=== PATIENT | male | born 1940 | race Caucasian/White ===

== ENCOUNTER 2020-03-18 14:33 | Outpatient (REF) | payer MEDICARE, SELFPAY ==
[2020-03-22 14:43] LABS: OBS Int Ctl Valid YES; OBS1 POS (NEG); OBS2 POS (NEG); OBS3 POS (NEG)
== END 2020-03-18 14:34 | disposition home or self-care (01) ==
LOC: HO.LNP 14:33
PROVIDERS: Visit Provider Internal Medicine Medical Oncology
DX: D64.9 Anemia, unspecified (principal)
CPT/HCPCS: 82270

== ENCOUNTER 2020-06-18 10:13 | Day surgery (SDC) | payer MEDICARE, SELFPAY ==
--- NOTE | 2020-06-13 09:23 | P.CONAN_ITS ---
Documented by User: Margy Mensah 06/17/20 10:11 HPI - Anesthesia Eval Consult details Narrative: 80yo M for Bone Marrow Biopsy cx'd 06/10/20 d/t patient ate breakfast cx'd 06/14/20 d/t pt not stopping coumadin PMFSH Past Medical History Medical History Anemia Arthritis Atrial fibrillation CHF (congestive heart failure) Chronic renal failure COPD (chronic obstructive pulmonary disease) HTN (hypertension) Hyperlipemia Mitral regurgitation Pulmonary hypertension Urinary (tract) obstruction Family History Family History Father No problems noted. Mother No problems noted. Surgical History Surgical History History of heart bypass surgery (~2006) History of lumbar surgery History of prostate surgery Social History Social History Alcohol intake: current Alcohol intake frequency: 0-2 drinks per day Alcohol type: wine Smoking Status: Current some day smoker Tobacco Type: Cigarette Cigarettes Per Day: 5 Years Smoked: 65 Advance Directives: No Advance Directives Information Provided: Yes Meds Allergies Allergy/AdvReac Type Severity Reaction Status Date / Time No Known Allergies Allergy Verified 04/22/20 11:47 Home Medications Medication Instructions Recorded Confirmed Type acetaminophen [Tylenol] 325 mg PO QID PRN 03/08/20 04/22/20 History aspirin [Aspir-81] 81 mg PO DAILY 03/08/20 04/22/20 History tramadol 50 mg PO Q6H PRN 03/08/20 04/22/20 History triamcinolone acetonide [Kenalog] 1 applic TOPICAL BID 03/08/20 04/22/20 History hydralazine [Apresoline] 25 mg PO DAILY 06/13/20 06/13/20 History warfarin 5 tab PO DAILY 06/13/20 06/13/20 History ipratropium 20 mcg-albuterol 100 1 puff INHALATION Q4H 06/18/20 History mcg/actuation mist for inhalation Exam Exam Date and Time: June 13, [id number] Pertinent Lab Results Pertinent Lab Results: Laboratory Tests 06/07/20 06/07/20 11:18 11:18 WBC 7.3 Hgb 9.2 L Hct 29.4 L Plt Count 157 L Sodium 140 Potassium 4.0 Chloride 106 Carbon Dioxide 26 BUN 40 H Creatinine 2.07 H Assessment and Plan Assessment Anesthesia Assessment: Chart Reviewed Documented by User: Fany Guerra 06/18/20 12:03 [facility] Past Medical History Medical History Anemia Arthritis Atrial fibrillation CHF (congestive heart failure) Chronic renal failure COPD (chronic obstructive pulmonary disease) HTN (hypertension) Hyperlipemia Mitral regurgitation Pulmonary hypertension Urinary (tract) obstruction Family History Family History Father No problems noted. Mother No problems noted. Surgical History Surgical History History of heart bypass surgery (~2006) History of lumbar surgery History of prostate surgery Social History Social History Alcohol intake: current Alcohol intake frequency: 0-2 drinks per day Alcohol type: wine Smoking Status: Current some day smoker Tobacco Type: Cigarette Cigarettes Per Day: 5 Years Smoked: 65 Advance Directives: No Advance Directives Information Provided: Yes Meds Allergies Allergy/AdvReac Type Severity Reaction Status Date / Time No Known Allergies Allergy Verified 04/22/20 11:47 Home Medications Medication Instructions Recorded Confirmed Type acetaminophen [Tylenol] 325 mg PO QID PRN 03/08/20 04/22/20 History aspirin [Aspir-81] 81 mg PO DAILY 03/08/20 04/22/20 History tramadol 50 mg PO Q6H PRN 03/08/20 04/22/20 History triamcinolone acetonide [Kenalog] 1 applic TOPICAL BID 03/08/20 04/22/20 History hydralazine [Apresoline] 25 mg PO DAILY 06/13/20 06/13/20 History warfarin 5 tab PO DAILY 06/13/20 06/13/20 History ipratropium 20 mcg-albuterol 100 1 puff INHALATION Q4H 06/18/20 History mcg/actuation mist for inhalation Exam Airway Mallampati Class: II TM Dist: >3cm Neck ROM: Full Assessment and Plan Assessment Anesthesia Assessment: Anesthesia Plan Discussed and Chart Reviewed Final Anesthetic Review NPO: Yes ASA Class: III Final Preanesthetic Review: No Changes in Pt Med Stat, Meds/Allgs Chart Reviewed, Consent Obtained/Reviewed and Anes Risks/Benef Reviewed Patient Risk: Intermediate Procedure Risk: Low Assessment/Block/Sedation in SS: Assess/Block/Sedation-SS Anesthetic Plan Anesthetic Plan: MAC: Disposition: Standard PACU
[2020-06-17 06:52] VITALS: BMI 30.8
[2020-06-18 10:52] VITALS: BP 176/67; PULSE 62; RESP 22; TEMP 37.1; O2SAT 92
[2020-06-18 11:09] LABS: INTERNATIONAL NORM RATIO 1.5 (0.9-1.1); Prothrombin Time 17.7 SEC (10.8-13.0)
[2020-06-18 12:28] LABS: Bone Marrow SEE SEPARATE REPORT
[2020-06-18 12:30] VITALS: BP 115/50; PULSE 53; RESP 18; TEMP 36.5; O2SAT 98
[2020-06-18 12:45] VITALS: BP 144/51; PULSE 50; RESP 17; TEMP 36.4
--- NOTE | 2020-06-18 14:56 | PM.HEMONCBM ---
Bone Marrow Aspiration - Bone Marrow Aspiration Procedure:: *Service Date: [06/18/20] Bone marrow aspiration and biopsy. Pre Op Diagnosis:: Anemia. Post Op Diagnosis:: Anemia. Surgeon:: Anastacio Faulkner Anesthesia:: MAC Consent:: Informed consent obtained from the patient for the procedure. Pros and cons of biopsy explained. The patient was willing to proceed with the procedure under local anesthesia. Procedure in Detail:: *Service Date: [_ Current Date] *Procedure: [Bone marrow aspiration and biopsy] *Pre Op Dx anemia *Post Op Dx: [Same] *Surgeon: [Anastacio Faulkner] The patient was position prone. The left posterior superior iliac spine prepped and draped. Under aseptic precautions, 5 ml of 1% lidocaine used for local anesthesia. Bone marrow aspirate was performed. With the Jamshidi needle, a core biopsy obtained without any complications. Specimens were sent for Rios stain, flow cytometry, cytogenetics. Biopsy was sent for histology. The patient tolerated the procedure well. Bandage was applied and patient was positioned on his back for 10 to 15 minutes after the procedure. The patient was advised to call us if he develops any pain or swelling at the surgical site. Follow up in 2 weeks in Oncology.
== END 2020-06-18 23:59 | disposition home or self-care (01) ==
PROVIDERS: Nurse Practitioner; PCP Internal Medicine; Visit Provider Internal Medicine Medical Oncology
PROC: (CPT 38221; principal; 2020-06-18 12:00)
DX: D64.9 Anemia, unspecified (principal); I13.0 Hypertensive heart and chronic kidney disease with heart failure and stage 1 through stage 4 chronic kidney disease, or unspecified chronic kidney disease; I50.9 Heart failure, unspecified; N18.9 Chronic kidney disease, unspecified; J44.9 Chronic obstructive pulmonary disease, unspecified; F17.210 Nicotine dependence, cigarettes, uncomplicated; Z79.82 Long term (current) use of aspirin; Z79.01 Long term (current) use of anticoagulants; Z79.899 Other long term (current) drug therapy
CPT/HCPCS: 38222; 36415; 85097; 85610; 88184; 88185; 88237; 88264; 88280; 88305; 88311; 88313; J1642; J3010

== ENCOUNTER 2020-07-03 09:40 | Outpatient (REF) | payer MEDICARE, SELFPAY ==
--- NOTE | ~2020-07-03 | XR_ITS ---
EXAMINATION: XR CHEST CLINICAL INFORMATION: Heart failure COMPARISON: None TECHNIQUE: 2 views of the chest were obtained. FINDINGS: The cardiac silhouette is enlarged. There are post-CABG changes. Hilar and mediastinal contours are unremarkable. There is a moderate-sized right pleural effusion. There may be compressive atelectasis of the adjacent right lung. The lungs are otherwise clear. There is a tiny left pleural effusion. There are degenerative changes of the spine and right shoulder. XR/XR chest 2V IMPRESSION: Enlarged cardiac silhouette and bilateral pleural effusions, right greater than left.
== END 2020-07-03 09:41 | disposition home or self-care (01) ==
LOC: HO.XRAY 09:40
PROVIDERS: PCP Internal Medicine; Visit Provider Internal Medicine
DX: Z13.89 Encounter for screening for other disorder (principal)
CPT/HCPCS: 71046; 99202

== ENCOUNTER 2020-07-03 12:45 | Outpatient (REF) | payer MEDICARE, SELFPAY ==
--- NOTE | 2020-07-03 13:56 | PFT_ITS ---
FLOWS: FEV1 of 65% of predicted at 1.27 L. FVC 56% of predicted at 1.58 L. FEV1 to FVC ratio of 0.80. No bronchodilator response except in small to medium airways. LUNG VOLUMES: Total lung capacity 61% of predicted at 3.46 L. Residual volume 83% of predicted at 1.94 L. Slow vital capacity 45% of predicted at 1.51 L. Expiratory reserve volume 18% of predicted at 0.13 L. Diffusion capacity is moderately decreased, diffusion capacity adjust to being mildly decreased after correction for alveolar ventilation. IMPRESSION: Moderate restrictive ventilatory defect with no bronchodilator response except in small to medium airways. Decreased expiratory reserve volume suggests extrathoracic restriction likely secondary to abdominal obesity. Decreased diffusion capacity suggests emphysema. MD JAYA Arellano/MODL / [id number]
== END 2020-07-03 12:46 | disposition home or self-care (01) ==
LOC: HO.RESP 12:45
PROVIDERS: Visit Provider Internal Medicine
DX: J44.9 Chronic obstructive pulmonary disease, unspecified (principal); I50.9 Heart failure, unspecified
CPT/HCPCS: 71046; 94010; 99202

== ENCOUNTER → 2020-07-10 10:23 | Outpatient (BNVA) | payer MEDICARE, SELFPAY | PROVIDERS: PCP Internal Medicine; Visit Provider Internal Medicine | DX: R06.00 Dyspnea, unspecified (principal); J98.4 Other disorders of lung | CPT/HCPCS: 99212 ==

== ENCOUNTER → 2021-09-13 | Outpatient (RCR) | payer MEDICARE, SELFPAY ==
--- NOTE | 2020-03-08 11:32 | P.CNHO_ITS ---
Subjective - Subjective Chief complaint: CONSULT FOR ANEMIA Patient: new to practice Primary Care Provider: Baron Conley MD HPI - Consult Narrative Reason for consult: ANEMIA Narrative: Ganga Atkinson is a pleasant 79 year old gentleman. review of his labs from October 31 revealed: WBC 6.7 (Oct 31, RBC 2.88 L (Oct 31, HGB 8.4 L (Oct 31, HCT 26.9 L (Oct 31, MCV 93.4 (Oct 31, MCH 29.2 (Oct 31, MCHC 31.2 (Oct 31, PLATELET CT 180 (Oct 31, Review of Systems - Constitutional Reports system reviewed and no additional complaints, except as documented, Reports anorexia, Reports poor appetite, Reports weight loss - Eyes Reports system reviewed and no additional complaints, except as documented - ENT Reports system reviewed and no additional complaints, except as documented - Cardiovascular Reports system reviewed and no additional complaints, except as documented - Respiratory Reports no additional respiratory complaints, Reports dyspnea, Reports other Comments: copd - Gastrointestinal Reports system reviewed and no additional complaints, except as documented, Reports constipation, Denies abdominal pain, Denies bright, red blood in stools, Denies change in bowel habits, Denies feeling full early, Denies nausea, Denies vomiting - Musculoskeletal Reports system reviewed and no additional complaints, except as documented, Reports joint pain - Integumentary/Breasts Skin/Breast: Reports no additional skin complaints, Reports as per HPI - Neurologic Reports system reviewed and no additional complaints, except as documented - Psychiatric Reports system reviewed and no additional complaints, except as documented [facility] Medical History: Medical History (Last Updated 03/08/20 @ 10:47 by Missy Segura RN) Anemia Arthritis Atrial fibrillation CHF (congestive heart failure) Chronic renal failure Hyperlipemia Urinary (tract) obstruction Surgical History: Surgical History (Last Updated 03/08/20 @ 10:47 by Missy Segura RN) History of heart bypass surgery History of lumbar surgery History of prostate surgery Home Medications and Allergies Home Medications Medication Instructions Recorded Confirmed Type acetaminophen [Tylenol] 325 mg PO QID PRN 03/08/20 03/08/20 History aspirin [Aspir-81] 81 mg PO DAILY 03/08/20 03/08/20 History atorvastatin 40 mg PO DAILY 03/08/20 03/08/20 History furosemide 20 mg PO DAILY 03/08/20 03/08/20 History isosorbide mononitrate 60 mg PO DAILY 03/08/20 03/08/20 History lorazepam 0.5 mg PO BEDTIME PRN 03/08/20 03/08/20 History multivitamin 1 cap PO DAILY 03/08/20 03/08/20 History nifedipine 60 mg PO DAILY 03/08/20 03/08/20 History nitroglycerin 0.4 mg SUBLINGUAL Q5M PRN 03/08/20 03/08/20 History tramadol 50 mg PO Q6H PRN 03/08/20 03/08/20 History triamcinolone acetonide [Kenalog] 1 applic TOPICAL BID 03/08/20 03/08/20 History Allergies Allergy/AdvReac Type Severity Reaction Status Date / Time No Known Allergies Allergy Verified 03/08/20 12:00 Physical Exam - Constitutional Present: no acute distress - Routine HEENT Exam Head: Present: normal inspection ENT: Present: mucous membranes moist - Routine Neck Exam Present: supple - Routine Respiratory Exam Present: CTAB - Routine Cardiovascular Exam Cardiovascular: Present: RRR, S1, S2 - Routine Abdominal Exam Present: soft, nontender - Routine Skin Exam Present: intact - Routine Neurological Exam Present: alert - Routine Psychiatric Exam Present: agitated, anxious Hem/Onc Consult Result - Labs CBC & Chem 7: 03/08/20 12:27 03/08/20 12:27 Assessment and Plan (1) Anemia Status: Acute Chem profile: Lytes normal. BUN 30. 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 LFTs: 0.4/94/15/9. This is a pleasant 79-year-old gentleman with a history of normochromic normocytic anemia dating back to WBC: 7.1, HGB 9.2, HCT 28.7, PLT 184. Manual diff: Shows macroovalocytes. DIFFERENTIAL DIAGNOSIS: 1. IRON DEFICIENCY ANEMIA: Iron profile: 46/357/13/48. transglut IgA: Normal. 2. B12 AND FOLATE DEFICIENCY: B12: 510. FOL:>20. 3. HEMOLYTIC ANEMIA: LDH: 183. 4. ACD: Related to underlying CKD: kidney function is high. This is likely. 5. MYELO INFILTRATIVE DISORDER: MDS VERSUS M.M. TP: 6.8. A LB: 4.3. SIEP: no abnormal bands. PLAN: I will proceed with further evaluation. His initial workup is as detailed above. It is quite benign. Next step would be to proceed with a bone marrow exam, given the abnormal peripheral smear, and lack of any other obvious abnormalities. I will discuss this with the patient and proceed according to his wishes. He will be following up with GI and Nephrology as well. he will return here in a month for a follow-up visit. Thanks, CC: Dr. Conley. Dr. Caballero. Dr. Bell. (2) Anemia Status: Acute this is an 79-year-old gentleman with history of her normochromic normocytic anemia. previous labs in the computer from October revealed a hemoglobin of 8.4. he tells me he has been taking iron. he refused to have an upper endoscopy and colonoscopy by Dr. Caballero. he feels he does not need it at his age. DIFFERENTIAL DIAGNOSIS:
[2020-03-08 13:00] LABS: Baso%MD 0.7 %; Eos%MD 5.5 %; Hematocrit 28.7 % (42-52); Hemoglobin 9.2 g/dl (14.0-18.0); IG%MD 0.6 %; Lymph%MD 18.9 %; Mean Corpuscular HGB Conc 32.1 g/dl (31.0-36.0); Mean Corpuscular Hemoglobin 31.8 pg (27.0-33.0); Mean Corpuscular Volume 99.3 fL (80-98); Mean Platelet Volume 10.3 fL (9.4-12.4); Mono%MD 10.2 %; Neut%MD 64.1 %; Platelet Count 184 X10*3/uL (160-400); Red Blood Count 2.89 X10*6/uL (4.60-5.80); Red Cell Distribution Width 15.9 % (11.0-16.0); White Blood Count 7.1 X10*3/uL (4.8-10.8)
[2020-03-08 13:21] LABS: Alanine Aminotransferase 9 U/L (0-40); Albumin Level 4.3 g/dL (3.5-5.0); Alkaline Phosphatase 94 U/L (39-117); Anion Gap 14 (12-20); Aspartate Amino Transferase 15 U/L (5-37); Bilirubin Total 0.4 mg/dL (0.0-1.0); Blood Urea Nitrogen 30 mg/dL (9-16); Calcium 8.9 mg/dL (8.4-10.2); Carbon Dioxide 25 mmol/L (22-29); Chloride 105 mmol/L (96-108); Estimated Glomerular Filt Rate 35; Glucose Random 90 mg/dL (60-115); Iron 46 mcg/dL (45-160); Lactate Dehydrogenase 183 U/L (118-273); Percent Iron Saturation 13 % (15-50); Potassium 4.3 mmol/l (3.3-5.1); Sodium 140 mmol/L (135-145); Total Iron Binding Capacity 357 mcg/dL (228-428); Total Protein 6.8 g/dL (6.5-8.0); Unsaturated Iron Binding 311 ug/dL
[2020-03-08 13:42] LABS: Ferritin 48 ng/mL (20-250)
--- NOTE | 2020-03-08 14:34 | MHC.HEMONC ---
Pt refused routine vital signs, Dr. Faulkner made aware.
[2020-03-08 15:21] LABS: Atypical Lymph Absolute Manual 0.1 x10*3/uL; Atypical Lymphs Percent Manual 1 % (0-6); Band Neutrophils Percent 0 % (3-5); Eosinophils Absolute Manual 0.4 X10*3/UL (0.0-0.8); Eosinophils Percent Manual 6 % (0-4); Lymphocytes Absolute Manual 1.1 X10*3/uL (0.6-4.8); Lymphocytes Percent Manual 15 % (20-40); Monocytes Absolute Manual 0.5 X10*3/uL (0.0-1.2); Monocytes Percent Manual 7 % (2-11); Neutrophils Percent Manual 71 % (45-73); RBC Morphology NOTED
[2020-03-08 15:22] LABS: Macrocytosis 2+; Ovalocytes 1+
[2020-03-08 15:23] LABS: Platelet Estimate NORMAL (NORMAL); Platelet Morphology Comment NORMAL
[2020-03-08 16:06] LABS: Folate > 20.0 ng/mL (> or = 4.0); Vitamin B12 510 pg/mL (200-900)
[2020-03-10 22:26] LABS: Transglutaminase Ab IgG 1 U/mL; Transglutaminase IgA 1 U/mL
[2020-03-11 15:22] LABS: IgA 144 mg/dL (70-320); IgG 936 mg/dL (600-1540); IgM 109 mg/dL (50-300)
--- NOTE | 2020-03-15 08:33 | MHC.HEMONC ---
Pt called multiple times late yesterday afternoon and I answered all of his calls. He had ongoing questions regarding his procedure for obtaining stools for occult blood. I reviewed procedure for getting stool onto cards and diet that is required per directives on stool collection envelope. He said he did not have those directions. He bacame very upset on phone that he left our clinic without directions. I reassured him that I was sorry and that I could mail them out to him or talk him through again. He remained upset but said that he understood my directions. I discussed all of this with Dept Autopsy Assistant, Tatiana and Dr Faulkner.
[2020-06-07 11:25] LABS: MANUAL DIFF FLAG NO
[2020-06-07 11:31] LABS: Basophils Percent Auto 0.5 % (0-2); Eosinophils Absolute Auto 0.3 X10*3/uL (0.0-0.4); Eosinophils Percent Auto 4.7 % (0-4); Hematocrit 29.4 % (42-52); Hemoglobin 9.2 g/dl (14.0-18.0); Imm Gran Abs Auto 0.05 X10*3/uL (0.00-0.03); Imm Gran Pct Auto 0.7 % (0.0-0.4); Lymphocytes Percent Auto 13.2 % (20-40); Mean Corpuscular HGB Conc 31.3 g/dl (31.0-36.0); Mean Corpuscular Hemoglobin 31.1 pg (27.0-33.0); Mean Corpuscular Volume 99.3 fL (80-98); Monocytes Absolute Auto 0.9 X10*3/uL (0.1-1.2); Monocytes Percent Auto 12.1 % (2-11); Neutrophils Percent Auto 68.8 % (45-73); Platelet Count 157 X10*3/uL (160-400); Red Blood Count 2.96 X10*6/uL (4.60-5.80); White Blood Count 7.3 X10*3/uL (4.8-10.8)
[2020-06-07 11:32] VITALS: BP 163/67; PULSE 54; RESP 14; TEMP 36.4; O2SAT 96; BMI 29.8
[2020-06-07 12:00] LABS: Alanine Aminotransferase 14 U/L (0-40); Albumin Level 4.2 g/dL (3.5-5.0); Alkaline Phosphatase 87 U/L (39-117); Anion Gap 12 (12-20); Aspartate Amino Transferase 15 U/L (5-37); Bilirubin Total 0.6 mg/dL (0.0-1.0); Blood Urea Nitrogen 40 mg/dL (9-16); Calcium 8.6 mg/dL (8.4-10.2); Carbon Dioxide 26 mmol/L (22-29); Chloride 106 mmol/L (96-108); Creatinine Clr Calc Pharmacy 25.1; Estimated Glomerular Filt Rate 31; Glucose Random 97 mg/dL (60-115); Sodium 140 mmol/L (135-145); Total Protein 6.5 g/dL (6.5-8.0)
--- NOTE | 2020-06-07 12:02 | PM.HEMONCPN ---
Medical Summary - Medical Summary Date of Service: 06/08/20 Medical Summary: DIAGNOSIS: ANEMIA. MGUS. Interval History Interval history: Ganga Atkinson is a pleasant 79 year old gentleman, here for a follow-up visit. He tells me he is feeling tired, more so than before. Upon walking from the front entrance to here he feels some chest pressure and a bit short of breath. He does have to take nitroglycerin at times. He denies headache no dizziness. No abdominal pain nausea vomiting heartburn indigestion. His bowels are working. The they are rather constipated since he started the iron. He has to take stool softener on a daily basis. He does have increased frequency of micturition. Sometimes he has to get up at night as well. He takes torsemide 20 mg twice a day. He follows with Dr. Bell from [facility]. He gets pain in the small joints of the hands. Sometimes it is hard for him to button up. He has some edema and stasis changes in his legs. The skin itches at times. There are scratch samuels there. His spirits are down. Rest of the review of systems is unremarkable. Lab records: Review of his labs from October 31 revealed: WBC 6.7 (Oct 31, RBC 2.88 L (Oct 31, HGB 8.4 L (Oct 31, HCT 26.9 L (Oct 31, MCV 93.4 (Oct 31, MCH 29.2 (Oct 31, MCHC 31.2 (Oct 31, PLATELET CT 180 (Oct 31, Review of Systems - Constitutional Reports system reviewed and no additional complaints, except as documented - Eyes Reports system reviewed and no additional complaints, except as documented - ENT Reports system reviewed and no additional complaints, except as documented - Cardiovascular Reports system reviewed and no additional complaints, except as documented - Respiratory Reports no additional respiratory complaints - Gastrointestinal Reports system reviewed and no additional complaints, except as documented - Genitourinary Genitourinary: Reports no additional male genitourinary complaints - Musculoskeletal Reports system reviewed and no additional complaints, except as documented - Integumentary/Breasts Skin/Breast: Reports no additional skin complaints - Neurologic Reports system reviewed and no additional complaints, except as documented - Psychiatric Reports system reviewed and no additional complaints, except as documented - Endocrine Reports no additional endocrine complaints - Hematologic/Lymphatic Reports system reviewed and no additional complaints, except as documented - Allergic/Immunologic Reports system reviewed and no additional complaints, except as documented [facility] Medical History: Medical History (Last Updated 06/03/20 @ 12:20 by Baron Conley MD) Anemia Arthritis Atrial fibrillation CHF (congestive heart failure) Chronic renal failure COPD (chronic obstructive pulmonary disease) Hyperlipemia Urinary (tract) obstruction Functional capacity: independent ambulation Patient : No Family History: Family History (Last Updated 04/15/20 @ 09:42 by Alexandra Esparza [facility]) Father No problems noted. Mother No problems noted. Surgical History: Surgical History (Last Updated 03/08/20 @ 10:47 by Missy Segura RN) History of heart bypass surgery History of lumbar surgery History of prostate surgery Smoking status: Current some day smoker Home Medications and Allergies Home Medications Medication Instructions Recorded Confirmed Type acetaminophen [Tylenol] 325 mg PO QID PRN 03/08/20 04/22/20 History aspirin [Aspir-81] 81 mg PO DAILY 03/08/20 04/22/20 History tramadol 50 mg PO Q6H PRN 03/08/20 04/22/20 History triamcinolone acetonide [Kenalog] 1 applic TOPICAL BID 03/08/20 04/22/20 History Allergies Allergy/AdvReac Type Severity Reaction Status Date / Time No Known Allergies Allergy Verified 04/22/20 11:47 Exam Vital signs: Vital Signs Temp 97.6 F 06/07/20 11:32 Pulse 54 06/07/20 11:32 Resp 14 06/07/20 11:32 BP 163/67 H 06/07/20 11:32 Pulse Ox 96 06/07/20 11:32 Intake & Output 06/06/20 06/07/20 06/07/20 18:59 06:59 18:59 Other: Weight 76.5 kg Weight 76.5 kg Body Mass Index 29.8 - Constitutional Present: no acute distress - Routine HEENT Exam Head: Present: normal inspection Eye: Present: normal appearance ENT: Present: mucous membranes moist - Routine Neck Exam Present: full ROM - Routine Respiratory Exam Present: CTAB - Routine Cardiovascular Exam Cardiovascular: Present: RRR, S1, S2 - Routine Abdominal Exam Present: soft, nontender - Routine Extremities Exam Present: nontender - Routine Back/Spine/Pelvis Exam Back/Spine: Present: full ROM - Routine Skin Exam Present: intact - Routine Neurological Exam Present: alert - Routine Psychiatric Exam Present: normal affect Data - Labs CBC & Chem 7: 06/07/20 11:18 06/07/20 11:18 Labs: 03/08/20 12:27 Complete Blood Count Man Dif Routine Comprehensive Met. Panel Routine Ferritin Routine IRON PROFILE Routine Immunofixation Pnl, Serum Routine Lactate Dehydrogenase Routine Transglutaminase Ab IgG Routine Transglutaminase IgA Routine Vitamin B12 and Folate Routine 06/07/20 11:18 Complete Blood Count Auto Diff Routine Laboratory Last Values WBC 7.3 X10*3/uL (4.8-10.8) 06/07/20 11:18 RBC 2.96 X10*6/uL (4.60-5.80) L 06/07/20 11:18 Hgb 9.2 g/dl (14.0-18.0) L 06/07/20 11:18 Hct 29.4 % (42-52) L 06/07/20 11:18 MCV 99.3 fL (80-98) H 06/07/20 11:18 MCH 31.1 pg (27.0-33.0) 06/07/20 11:18 MCHC 31.3 g/dl (31.0-36.0) 06/07/20 11:18 RDW 16.0 % (11.0-16.0) 06/07/20 11:18 Plt Count 157 X10*3/uL (160-400) L 06/07/20 11:18 MPV 10.0 fL (9.4-12.4) 06/07/20 11:18 Immature Gran % (Auto) 0.7 % (0.0-0.4) H 06/07/20 11:18 Neut % (Auto) 68.8 % (45-73) 06/07/20 11:18 Lymph % (Auto) 13.2 % (20-40) L 06/07/20 11:18 Brantley % (Auto) 12.1 % (2-11) H 06/07/20 11:18 Eos % (Auto) 4.7 % (0-4) H 06/07/20 11:18 Baso % (Auto) 0.5 % (0-2) 06/07/20 11:18 Lymph # (Auto) 1.0 X10*3/uL (1.2-4.9) L 06/07/20 11:18 Brantley # (Auto) 0.9 X10*3/uL (0.1-1.2) 06/07/20 11:18 Eos # (Auto) 0.3 X10*3/uL (0.0-0.4) 06/07/20 11:18 Baso # (Auto) 0.0 X10*3/uL (0.0-0.2) 06/07/20 11:18 Abs Immat Gran (auto) 0.05 X10*3/uL (0.00-0.03) H 06/07/20 11:18 Absolute Neuts (auto) 5.0 X10*3/uL (2.0-8.3) 06/07/20 11:18 Absolute Nucleated RBC 0.000 X10*3/uL (0.0-0.012) 06/07/20 11:18 Nucleated RBC % (auto) 0.0 /100WBC (0.0-0.2) 06/07/20 11:18 Neutrophils % (Manual) 71 % (45-73) 03/08/20 12:27 Band Neutrophils % 0 % (3-5) L 03/08/20 12:27 Lymphocytes % (Manual) 15 % (20-40) L 03/08/20 12:27 Atypical Lymphs % (Man) 1 % (0-6) 03/08/20 12:27 Monocytes % (Manual) 7 % (2-11) 03/08/20 12:27 Eosinophils % (Manual) 6 % (0-4) H 03/08/20 12:27 Abs Neuts (Manual) 5.0 X10*3/uL (2.2-7.9) 03/08/20 12:27 Lymphocytes # (Manual) 1.1 X10*3/uL (0.6-4.8) 03/08/20 12:27 Atyp Lymphs # (Manual) 0.1 x10*3/uL 03/08/20 12:27 Monocytes # (Manual) 0.5 X10*3/uL (0.0-1.2) 03/08/20 12:27 Eosinophils # (Manual) 0.4 X10*3/UL (0.0-0.8) 03/08/20 12:27 Platelet Estimate NORMAL (NORMAL) 03/08/20 12:27 Plt Morphology Comment NORMAL 03/08/20 12:27 RBC Morphology NOTED 03/08/20 12:27 Macrocytosis 2+ 03/08/20 12:27 Ovalocytes 1+ 03/08/20 12:27 Sodium 140 mmol/L (135-145) 06/07/20 11:18 Potassium 4.0 mmol/l (3.3-5.1) 06/07/20 11:18 Chloride 106 mmol/L (96-108) 06/07/20 11:18 Carbon Dioxide 26 mmol/L (22-29) 06/07/20 11:18 Anion Gap 12 (12-20) 06/07/20 11:18 BUN 40 mg/dL (9-16) H 06/07/20 11:18 Creatinine 2.07 mg/dL (0.5-1.4) H 06/07/20 11:18 Estim Creat Clear Calc 25.1 06/07/20 11:18 Estimated GFR 31 06/07/20 11:18 Random Glucose 97 mg/dL (60-115) 06/07/20 11:18 Calcium 8.6 mg/dL (8.4-10.2) 06/07/20 11:18 Iron 46 mcg/dL (45-160) 03/08/20 12:27 TIBC 357 mcg/dL (228-428) 03/08/20 12:27 % Saturation 13 % (15-50) L 03/08/20 12:27 Unsat Iron Binding 311 ug/dL 03/08/20 12:27 Ferritin 48 ng/mL (20-250) 03/08/20 12:27 Total Bilirubin 0.6 mg/dL (0.0-1.0) 06/07/20 11:18 AST 15 U/L (5-37) 06/07/20 11:18 ALT 14 U/L (0-40) 06/07/20 11:18 Alkaline Phosphatase 87 U/L (39-117) 06/07/20 11:18 Lactate Dehydrogenase 183 U/L (118-273) 03/08/20 12:27 Total Protein 6.5 g/dL (6.5-8.0) 06/07/20 11:18 Albumin 4.2 g/dL (3.5-5.0) 06/07/20 11:18 Vitamin B12 510 pg/mL (200-900) 03/08/20 12:27 Folate > 20.0 ng/mL (> or = 4.0) 03/08/20 12:27 IgG Total 936 mg/dL (600-1540) 03/08/20 12:27 IgA Total 144 mg/dL (70-320) 03/08/20 12:27 IgM 109 mg/dL (50-300) 03/08/20 12:27 LEXII Interpretation SEE NOTE 03/08/20 12:27 Tiss Transglutamin IgG 1 U/mL 03/08/20 12:27 Tiss Transglutamin IgA 1 U/mL 03/08/20 12:27 Progress Note: A/P (1) Anemia Status: Acute Assessment and plan: Chem profile 03/08: Lytes normal. BUN 30. 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 LFTs: 0.4/94/15/9. This is a pleasant 80 year-old gentleman with a history of normochromic normocytic Anemia dating back to at least 6 months if not longer. CBC from March 08: WBC: 7.1, HGB 9.2, HCT 28.7, PLT 184. Manual diff: Shows macro-ovalocytes. DIFFERENTIAL DIAGNOSIS: 1. IRON DEFICIENCY ANEMIA: Iron profile: 46/357/13/48. transglut IgA: Normal. 2. B12 AND FOLATE DEFICIENCY: B12: 510. FOL:>20. 3. HEMOLYTIC ANEMIA: LDH: 183. 4. ACD: Related to underlying CKD: kidney function is high. This is likely. 5. MYELO INFILTRATIVE DISORDER: MDS VERSUS M.M. TP: 6.8. A LB: 4.3. SIEP: no abnormal bands. I proceeded with further evaluation. His initial workup is as detailed above. SIEP was normal at that time. He recently had an SIEP on May [address] Bell. Results: IgG 988, IgG 8158, IgM 128. A band of IgG kappa monoclonal protein is present, a band of lambda as well. He does have underlying CKD and anemia, so myeloma is a possibility. PLAN: Next step would be to proceed with a bone marrow exam, given the abnormal peripheral smear, and abnormal SIEP. Will add serum free light chain ratio and beta 2 microglobulin for prognosis. Will get a skeletal survey to look for any blood take lesions in the bones. He will be following up with GI and Nephrology as well. He will return here in a month for a follow-up visit. Thanks, CC: Dr. Conley. Dr. Caballero. Dr. Bell. (2) Anemia Status: Acute - Time Spent With Patient Total time spent is greater than 50% in coordination of care (as documented) at patient's floor/unit and/or counseling patient: 25 - 35 minutes
--- NOTE | 2020-06-07 12:18 | MHC.HEMONCMA ---
Patient here for a follow up today for anemia, his medications and allergies were reviewed and updated. He states he is doing well.
[2020-06-07 12:20] LABS: Ferritin 52 ng/mL (20-250)
--- NOTE | 2020-06-07 14:44 | MHC.HEMONCMA ---
Scheduled patient for bone marrow biopsy for Wednesday06/10/2020 at 12pm. Patient needs to hold aspirin for Wednesday and Wednesday. Cytology has been notified. Patient has been notified.
[2020-06-10 13:37] LABS: Beta-2 Microglobulin, Serum 6.07 mg/L (< OR = 2.51)
--- NOTE | 2020-06-10 15:09 | MHC.HEMONCMA ---
Patient accidentally ate so they had to cancel the bone marrow biopsy for today, he was reschedule to this Wednesday at 1pm. I let him know that he needs to stay off the aspirin again for 3 days and that a nurse will be calling him to discuss what to do the night before. He is ok with the plan and will wait for the call.
[2020-06-10 18:41] LABS: Kappa Light Chain, Free Serum 43.8 mg/L (3.3-19.4); Kappa/Lambda Lt Ch Free Ratio 1.63 (0.26-1.65); Lambda Light Chain, Free Serum 26.9 mg/L (5.7-26.3)
--- NOTE | 2020-06-13 13:17 | MHC.HEMONCMA ---
It came to Dr Faulkner's attention that the patient is also on a blood thinner, so I called the patient to verify. Patient was very upset, states that he thought the kidney replacement dr told us since he is the one who switched him from eliquis to warfarin, i let him know that he did not and that when i verified his medications he did not tell me this, that he is only on baby aspirin. Patient will need to be rescheduled until Wednesday, but i let the doctor know that the OR stated he is booked in the Ortho room and that he may be bumped. Dr Faulkner states that she will call someone because it is not ok if he gets bumped.
--- NOTE | 2020-06-13 17:13 | MHC.HEMONC ---
CALL FROM PT - PT WANTED TO KNOW ABOUT RESCHEDULING HIS BONE MARROW Bx. SPOKE WITH PT, INFORMED HIM THAT THE bx WAS RESCHEDULED TO Wednesday06/18/20 AT 1PM. INFORMED PT TP STOP TAKING THE WARFRIN & ASPIRIN UNTIL AFTER THE BX PER ROSALINDA .Yovani.
--- NOTE | 2020-06-14 13:22 | MHC.HEMONCMA ---
Patient left a voicemail on the triage line for someone to call him back, I called and it went to the voicemail so I left a message letting him know that i was returning his call and that i am here until 3:20 and i can help him when he calls back.
--- NOTE | 2020-06-14 15:03 | MHC.HEMONCMA ---
Patient called back, he just wanted to go over his medications that he is allowed to take. i told him that he CAN NOT take the aspirin and warfarin at all before this procedure and that he CAN NOT eat before the procedure either. Patient states he understands and agrees with plan.
[2020-07-23 10:56] VITALS: BP 152/67; PULSE 56; RESP 14; TEMP 36.6; O2SAT 100; BMI 29.8
[2020-07-23 11:39] LABS: MANUAL DIFF FLAG NO
[2020-07-23 11:53] LABS: Basophils Percent Auto 0.6 % (0-2); Eosinophils Absolute Auto 0.3 X10*3/uL (0.0-0.4); Eosinophils Percent Auto 4.8 % (0-4); Hemoglobin 8.8 g/dl (14.0-18.0); Imm Gran Abs Auto 0.02 X10*3/uL (0.00-0.03); Imm Gran Pct Auto 0.3 % (0.0-0.4); Lymphocytes Absolute Auto 0.8 X10*3/uL (1.2-4.9); Lymphocytes Percent Auto 13.1 % (20-40); Mean Corpuscular HGB Conc 31.4 g/dl (31.0-36.0); Mean Corpuscular Hemoglobin 29.8 pg (27.0-33.0); Mean Corpuscular Volume 94.9 fL (80-98); Mean Platelet Volume 10.2 fL (9.4-12.4); Monocytes Absolute Auto 0.7 X10*3/uL (0.1-1.2); Monocytes Percent Auto 11.5 % (2-11); Neutrophils Absolute Auto 4.4 X10*3/uL (2.0-8.3); Neutrophils Percent Auto 69.7 % (45-73); Platelet Count 135 X10*3/uL (160-400); Red Blood Count 2.95 X10*6/uL (4.60-5.80); Red Cell Distribution Width 15.4 % (11.0-16.0); White Blood Count 6.3 X10*3/uL (4.8-10.8)
[2020-07-23 12:20] LABS: Alanine Aminotransferase 11 U/L (0-40); Alkaline Phosphatase 75 U/L (39-117); Aspartate Amino Transferase 14 U/L (5-37); Bilirubin Total 0.5 mg/dL (0.0-1.0); Blood Urea Nitrogen 45 mg/dL (9-16); Calcium 8.4 mg/dL (8.4-10.2); Estimated Glomerular Filt Rate 33; Glucose Random 98 mg/dL (60-115); Total Protein 6.1 g/dL (6.5-8.0)
--- NOTE | 2020-07-23 12:27 | P.PNHO_ITS ---
Medical Summary - Medical Summary Date of Service: 07/23/20 Chief complaint: Follow-up for anemia. Medical Summary: DIAGNOSIS: ANEMIA. MGUS. Hemoglobin 8.8 today. Interval History Interval history: Ganga Atkinson is a pleasant 80 year old gentleman, here for a follow-up visit. He tells me he is feeling very weak this week, more so than before. He feels some chest pressure and a bit short of breath, upon walking from the front entrance to here. He denies headache no dizziness. No abdominal pain nausea vomiting heartburn indigestion. His bowels are working. The they are rather constipated since he started the iron. He has to take stool softener on a daily basis. He does have increased frequency of micturition. Sometimes he has to get up at night as well. He takes torsemide 20 mg twice a day. He follows with Dr. Bell from [facility]. He gets pain in the small joints of the hands. Sometimes it is hard for him to button up. He has some edema and stasis changes in his legs. The skin itches at times. There are scratch samuels there. He is in good spirits. Rest of the review of systems is unremarkable. Lab records: Review of his labs from October 31 revealed: WBC 6.7 (Oct 31, RBC 2.88 L (Oct 31, HGB 8.4 L (Oct 31, HCT 26.9 L (Oct 31, MCV 93.4 (Oct 31, MCH 29.2 (Oct 31, MCHC 31.2 (Oct 31, PLATELET CT 180 (Oct 31, Review of Systems - Constitutional Reports no additional constitutional complaints - Eyes Reports no additional eye complaints - ENT Reports no additional ear, nose, mouth, and throat complaints - Cardiovascular Reports no additional cardiovascular complaints - Respiratory Reports no additional respiratory complaints - Gastrointestinal Reports no additional gastrointestinal complaints - Genitourinary Genitourinary: Reports no additional male genitourinary complaints - Musculoskeletal Reports no additional musculoskeletal complaints - Integumentary/Breasts Skin/Breast: Reports no additional skin complaints - Neurologic Reports no additional neurologic complaints - Psychiatric Reports no additional psychiatric complaints - Endocrine Reports no additional endocrine complaints - Hematologic/Lymphatic Reports no additional hematologic/lymphatic complaints - Allergic/Immunologic Reports no additional allergic/immunologic complaints [facility] Medical History: Medical History (Last Updated 07/11/20 @ 08:26 by Randolph Duke MD) Anemia Arthritis Atrial fibrillation CHF (congestive heart failure) CHF (congestive heart failure) Chronic renal failure COPD (chronic obstructive pulmonary disease) Dyspnea HTN (hypertension) Hyperlipemia Mitral regurgitation Pulmonary hypertension Restrictive lung disease Urinary (tract) obstruction Functional capacity: independent ambulation Patient : No Family History: Family History (Last Reviewed 07/10/20 @ 11:26 by Randolph Duke MD) Father No problems noted. Mother No problems noted. Surgical History: Surgical History (Last Reviewed 07/10/20 @ 11:26 by Randolph Duke MD) History of bone marrow biopsy History of heart bypass surgery Onset Date: ~2006 History of lumbar surgery History of prostate surgery Social History: Social History (Last Reviewed 07/10/20 @ 11:26 by Randolph Duke MD) Alcohol History: Alcohol intake: current Alcohol History Details: Alcohol intake frequency: does not drink Alcohol type: wine Tobacco History: Smoking Status: Current some day smoker Tobacco Type: Cigarette Cigarettes Per Day: 5 Years Smoked: 65 Smoked in Last 30 Days: Yes Patient Given Instructions on How to Stop Smoking: No Patient Given Instructions on How to Stop Smoking comment: refused Nutrition Assessment: Patient : No Smoking status: Current some day smoker Oncology Screenings - ECOG Performance Status ECOG Performance Status: 1 Home Medications and Allergies Home Medications Medication Instructions Recorded Confirmed Type acetaminophen [Tylenol] 325 mg PO QID PRN 03/08/20 04/22/20 History aspirin [Aspir-81] 81 mg PO DAILY 03/08/20 04/22/20 History triamcinolone acetonide [Kenalog] 1 applic TOPICAL BID 03/08/20 04/22/20 History hydralazine [Apresoline] 25 mg PO DAILY 06/13/20 06/13/20 History warfarin 5 tab PO DAILY 06/13/20 06/13/20 History torsemide 20 mg tablet 20 mg PO BID tab 07/03/20 History epoetin arina [Procrit] 40,000 unit SUBCUT 3XW 07/23/20 07/23/20 History Allergies Allergy/AdvReac Type Severity Reaction Status Date / Time No Known Allergies Allergy Verified 07/10/20 11:09 Exam Vital signs: Vital Signs Temp 97.8 F 07/23/20 10:56 Pulse 56 07/23/20 10:56 Resp 14 07/23/20 10:56 BP 152/67 H 07/23/20 10:56 Pulse Ox 100 07/23/20 10:56 Intake & Output 07/22/20 07/23/20 07/23/20 18:59 06:59 18:59 Other: Weight 76.5 kg Weight in Grams 21738 Weight 76.5 kg Body Mass Index 29.8 - Constitutional Present: no acute distress - Routine HEENT Exam Head: Present: normal inspection - Routine Neck Exam Present: full ROM - Routine Respiratory Exam Present: CTAB - Routine Cardiovascular Exam Cardiovascular: Present: RRR, S1, S2 - Routine Abdominal Exam Present: soft, nontender - Routine Extremities Exam Present: nontender - Routine Back/Spine/Pelvis Exam Back/Spine: Present: full ROM - Routine Skin Exam Present: intact - Routine Neurological Exam Present: alert - Routine Psychiatric Exam Present: normal affect Data - Labs CBC & Chem 7: 07/23/20 11:30 07/23/20 11:30 Labs: 03/08/20 12:27 Complete Blood Count Man Dif Routine Comprehensive Met. Panel Routine Ferritin Routine IRON PROFILE Routine Immunofixation Pnl, Serum Routine Lactate Dehydrogenase Routine Transglutaminase Ab IgG Routine Transglutaminase IgA Routine Vitamin B12 and Folate Routine 06/07/20 11:18 Complete Blood Count Auto Diff Routine Laboratory Last Values WBC 7.3 X10*3/uL (4.8-10.8) 06/07/20 11:18 RBC 2.96 X10*6/uL (4.60-5.80) L 06/07/20 11:18 Hgb 9.2 g/dl (14.0-18.0) L 06/07/20 11:18 Hct 29.4 % (42-52) L 06/07/20 11:18 MCV 99.3 fL (80-98) H 06/07/20 11:18 MCH 31.1 pg (27.0-33.0) 06/07/20 11:18 MCHC 31.3 g/dl (31.0-36.0) 06/07/20 11:18 RDW 16.0 % (11.0-16.0) 06/07/20 11:18 Plt Count 157 X10*3/uL (160-400) L 06/07/20 11:18 MPV 10.0 fL (9.4-12.4) 06/07/20 11:18 Immature Gran % (Auto) 0.7 % (0.0-0.4) H 06/07/20 11:18 Neut % (Auto) 68.8 % (45-73) 06/07/20 11:18 Lymph % (Auto) 13.2 % (20-40) L 06/07/20 11:18 [place] % (Auto) 12.1 % (2-11) H 06/07/20 11:18 Eos % (Auto) 4.7 % (0-4) H 06/07/20 11:18 Baso % (Auto) 0.5 % (0-2) 06/07/20 11:18 Lymph # (Auto) 1.0 X10*3/uL (1.2-4.9) L 06/07/20 11:18 [place] # (Auto) 0.9 X10*3/uL (0.1-1.2) 06/07/20 11:18 Eos # (Auto) 0.3 X10*3/uL (0.0-0.4) 06/07/20 11:18 Baso # (Auto) 0.0 X10*3/uL (0.0-0.2) 06/07/20 11:18 Abs Immat Gran (auto) 0.05 X10*3/uL (0.00-0.03) H 06/07/20 11:18 Absolute Neuts (auto) 5.0 X10*3/uL (2.0-8.3) 06/07/20 11:18 Absolute Nucleated RBC 0.000 X10*3/uL (0.0-0.012) 06/07/20 11:18 Nucleated RBC % (auto) 0.0 /100WBC (0.0-0.2) 06/07/20 11:18 Neutrophils % (Manual) 71 % (45-73) 03/08/20 12:27 Band Neutrophils % 0 % (3-5) L 03/08/20 12:27 Lymphocytes % (Manual) 15 % (20-40) L 03/08/20 12:27 Atypical Lymphs % (Man) 1 % (0-6) 03/08/20 12:27 Monocytes % (Manual) 7 % (2-11) 03/08/20 12:27 Eosinophils % (Manual) 6 % (0-4) H 03/08/20 12:27 Abs Neuts (Manual) 5.0 X10*3/uL (2.2-7.9) 03/08/20 12:27 Lymphocytes # (Manual) 1.1 X10*3/uL (0.6-4.8) 03/08/20 12:27 Atyp Lymphs # (Manual) 0.1 x10*3/uL 03/08/20 12:27 Monocytes # (Manual) 0.5 X10*3/uL (0.0-1.2) 03/08/20 12:27 Eosinophils # (Manual) 0.4 X10*3/UL (0.0-0.8) 03/08/20 12:27 Platelet Estimate NORMAL (NORMAL) 03/08/20 12:27 Plt Morphology Comment NORMAL 03/08/20 12:27 RBC Morphology NOTED 03/08/20 12:27 Macrocytosis 2+ 03/08/20 12:27 Ovalocytes 1+ 03/08/20 12:27 Sodium 140 mmol/L (135-145) 06/07/20 11:18 Potassium 4.0 mmol/l (3.3-5.1) 06/07/20 11:18 Chloride 106 mmol/L (96-108) 06/07/20 11:18 Carbon Dioxide 26 mmol/L (22-29) 06/07/20 11:18 Anion Gap 12 (12-20) 06/07/20 11:18 BUN 40 mg/dL (9-16) H 06/07/20 11:18 Creatinine 2.07 mg/dL (0.5-1.4) H 06/07/20 11:18 Estim Creat Clear Calc 25.1 06/07/20 11:18 Estimated GFR 31 06/07/20 11:18 Random Glucose 97 mg/dL (60-115) 06/07/20 11:18 Calcium 8.6 mg/dL (8.4-10.2) 06/07/20 11:18 Iron 46 mcg/dL (45-160) 03/08/20 12:27 TIBC 357 mcg/dL (228-428) 03/08/20 12:27 % Saturation 13 % (15-50) L 03/08/20 12:27 Unsat Iron Binding 311 ug/dL 03/08/20 12:27 Ferritin 48 ng/mL (20-250) 03/08/20 12:27 Total Bilirubin 0.6 mg/dL (0.0-1.0) 06/07/20 11:18 AST 15 U/L (5-37) 06/07/20 11:18 ALT 14 U/L (0-40) 06/07/20 11:18 Alkaline Phosphatase 87 U/L (39-117) 06/07/20 11:18 Lactate Dehydrogenase 183 U/L (118-273) 03/08/20 12:27 Total Protein 6.5 g/dL (6.5-8.0) 06/07/20 11:18 Albumin 4.2 g/dL (3.5-5.0) 06/07/20 11:18 Vitamin B12 510 pg/mL (200-900) 03/08/20 12:27 Folate > 20.0 ng/mL (> or = 4.0) 03/08/20 12:27 IgG Total 936 mg/dL (600-1540) 03/08/20 12:27 IgA Total 144 mg/dL (70-320) 03/08/20 12:27 IgM 109 mg/dL (50-300) 03/08/20 12:27 LEXII Interpretation SEE NOTE 03/08/20 12:27 Tiss Transglutamin IgG 1 U/mL 03/08/20 12:27 Tiss Transglutamin IgA 1 U/mL 03/08/20 12:27 Progress Note: A/P (1) Anemia Problem details: ANEMIA OF CHRONIC DISEASE, NONSPECIFIC, MAY BE SECONDARY TO BONE MARROW DYSFUNCTION. Status: Acute Assessment and plan: Chem profile 03/08: Lytes normal. BUN 30. IDENTIFICATION CLERK 1.84. LFTs: 0.4/94/15/9. This is a pleasant 80 year-old gentleman with a history of normochromic normocytic Anemia dating back to at least 6 months if not longer. CBC from March 08: WBC: 7.1, HGB 9.2, HCT 28.7, PLT 184. Manual diff: Shows macro-ovalocytes. DIFFERENTIAL DIAGNOSIS: 1. IRON DEFICIENCY ANEMIA: Iron profile: 46/357/13/48. transglut IgA: Normal. 2. B12 AND FOLATE DEFICIENCY: B12: 510. FOL:>20. 3. HEMOLYTIC ANEMIA: LDH: 183. 4. ACD: Related to underlying CKD: kidney function is high. This is likely. 5. MYELO INFILTRATIVE DISORDER: MDS VERSUS M.M. TP: 6.8. A LB: 4.3. SIEP: no abnormal bands. I proceeded with further evaluation. His initial workup is as detailed above. SIEP was normal at that time. He recently had an SIEP on May [address] Bell. Results: IgG 988, IgG 8158, IgM 128. A band of IgG kappa monoclonal protein is present, a band of lambda as well. He does have underlying CKD and anemia, so myeloma is a possibility. However repeat SIEP: Within normal limits.His Serum free light chain ratio:1.63. I proceeded with a bone marrow exam, given the abnormal peripheral smear, and abnormal SIEP. This was done on 07/02 and revealed: Normocellular, mildly erythroid dominant, marrow with maturing trilineage hematopoiesis. Diagnostic morphologic and flow cytometric features of a plasma cell dyscrasia are not seen. No dysplasia or marrow infiltrative process seen. Cytogenetics: Normal. Most likely anemia is related to stage III CKD. He is currently on Procrit from Dr. Bell is office. He has been getting it every 3-4 weeks. PLAN: I did offer it to give him a unit of blood to help with his shortness of breast symptoms, however he declined. I will fax his labs data to Dr. ahn to see the Procrit can be given weekly for a while to expedite red cell formation. He will be following up with Cardiology and Nephrology as well. He has an appointment with Dr. Bell next week and with Dr. Zuñiga, on 08/08. He will return here in a month for a follow-up visit. Thanks, CC: Dr. Conley. Dr. Caballero. Dr. Bell. (2) Anemia Status: Acute - Time Spent With Patient Total time spent is greater than 50% in coordination of care (as documented) at patient's floor/unit and/or counseling patient: 25 - 35 minutes
--- NOTE | 2020-07-23 12:30 | MHC.HEMONCMA ---
Pt present to f/u on anemia. History reviewed, labs drawn and pt to return in a month.
[2020-07-23 13:15] LABS: Anion Gap 11 (12-20); Carbon Dioxide 25 mmol/L (22-29); Chloride 109 mmol/L (96-108); Sodium 141 mmol/L (135-145)
[2020-09-05 11:37] LABS: MANUAL DIFF FLAG NO
[2020-09-05 11:42] VITALS: BP 183/72; PULSE 54; RESP 14; TEMP 36.1; O2SAT 96; BMI 29.2
[2020-09-05 11:57] LABS: Basophils Percent Auto 0.6 % (0-2); Eosinophils Absolute Auto 0.3 X10*3/uL (0.0-0.4); Eosinophils Percent Auto 3.7 % (0-4); Hematocrit 27.8 % (42-52); Hemoglobin 8.5 g/dl (14.0-18.0); Imm Gran Abs Auto 0.04 X10*3/uL (0.00-0.03); Imm Gran Pct Auto 0.6 % (0.0-0.4); Lymphocytes Absolute Auto 0.9 X10*3/uL (1.2-4.9); Lymphocytes Percent Auto 12.1 % (20-40); Mean Corpuscular HGB Conc 30.6 g/dl (31.0-36.0); Mean Corpuscular Volume 91.4 fL (80-98); Mean Platelet Volume 9.8 fL (9.4-12.4); Monocytes Absolute Auto 0.9 X10*3/uL (0.1-1.2); Monocytes Percent Auto 12.1 % (2-11); Neutrophils Absolute Auto 5.1 X10*3/uL (2.0-8.3); Neutrophils Percent Auto 70.9 % (45-73); Platelet Count 172 X10*3/uL (160-400); Red Blood Count 3.04 X10*6/uL (4.60-5.80); Red Cell Distribution Width 15.8 % (11.0-16.0); White Blood Count 7.1 X10*3/uL (4.8-10.8)
--- NOTE | 2020-09-05 11:58 | PM.HEMONCPN ---
Medical Summary - Medical Summary Date of Service: 09/05/20 Chief complaint: Follow-up for anemia. Medical Summary: DIAGNOSIS: ANEMIA. MGUS. Hemoglobin 8.8 today. Interval History Interval history: Ganga Atkinson is a pleasant 80 year old gentleman, here for a follow-up visit. He tells me that he is doing the best he can. His energy level is not. That good even getting out of bed getting dressed is an effort. It makes him feel short of breath and lightheaded. He feels some chest pressure and a bit short of breath, upon walking from the front entrance to here. He denies headache no dizziness. No abdominal pain nausea vomiting heartburn indigestion. His bowels are working. The they are rather constipated since he started the iron. He has to take stool softener on a daily basis. He does have increased frequency of micturition. Sometimes he has to get up at night as well. He takes torsemide 20 mg twice a day. He follows with Dr. Bell from renal. He gets pain in the small joints of the hands. Sometimes it is hard for him to button up. He has some edema and stasis changes in his legs. The skin itches at times. There are scratch samuels there. He is in good spirits. Rest of the review of systems is unremarkable. He is under the care of renal. He gets Procrit every 2-3 weeks. Lab records: Review of his labs from October 31 revealed: WBC 6.7 (Oct 31, RBC 2.88 L (Oct 31, HGB 8.4 L (Oct 31, HCT 26.9 L (Oct 31, MCV 93.4 (Oct 31, MCH 29.2 (Oct 31, MCHC 31.2 (Oct 31, PLATELET CT 180 (Oct 31, Review of Systems - Constitutional Reports no additional constitutional complaints - Eyes Reports no additional eye complaints - ENT Reports no additional ear, nose, mouth, and throat complaints - Cardiovascular Reports no additional cardiovascular complaints - Respiratory Reports no additional respiratory complaints - Gastrointestinal Reports no additional gastrointestinal complaints - Genitourinary Genitourinary: Reports no additional male genitourinary complaints - Musculoskeletal Reports no additional musculoskeletal complaints - Integumentary/Breasts Skin/Breast: Reports no additional skin complaints - Neurologic Reports no additional neurologic complaints - Psychiatric Reports no additional psychiatric complaints - Endocrine Reports no additional endocrine complaints - Hematologic/Lymphatic Reports no additional hematologic/lymphatic complaints - Allergic/Immunologic Reports no additional allergic/immunologic complaints [facility] Medical History: Medical History (Last Reviewed 09/05/20 @ 11:43 by Dayna Rivas) Anemia Arthritis Atrial fibrillation CHF (congestive heart failure) CHF (congestive heart failure) CHF (congestive heart failure) Chronic renal failure COPD (chronic obstructive pulmonary disease) Dyspnea HTN (hypertension) Hyperlipemia Mitral regurgitation Pulmonary hypertension Restrictive lung disease Urinary (tract) obstruction Functional capacity: independent ambulation Patient : No Family History: Family History (Last Reviewed 08/21/20 @ 11:30 by Fritz Nuno) Father No problems noted. Mother No problems noted. Surgical History: Surgical History (Last Reviewed 09/05/20 @ 11:43 by Dayna Rivas) History of bone marrow biopsy History of heart bypass surgery Onset Date: ~2006 History of lumbar surgery History of prostate surgery Social History: Social History (Last Reviewed 09/05/20 @ 11:43 by Dayna Rivas) Alcohol History: Alcohol intake: current Alcohol History Details: Alcohol intake frequency: does not drink Alcohol type: wine Tobacco History: Smoking Status: Current some day smoker Tobacco Type: Cigarette Years Smoked: 65 Smoked in Last 30 Days: Yes Patient Given Instructions on How to Stop Smoking: No Patient Given Instructions on How to Stop Smoking comment: refused Nutrition Assessment: Patient : No Smoking status: Current some day smoker Oncology Screenings - ECOG Performance Status ECOG Performance Status: 1 Home Medications and Allergies Home Medications Medication Instructions Recorded Confirmed Type acetaminophen [Tylenol] 325 mg PO QID PRN 03/08/20 04/22/20 History aspirin [Aspir-81] 81 mg PO DAILY 03/08/20 04/22/20 History triamcinolone acetonide [Kenalog] 1 applic TOPICAL BID 03/08/20 04/22/20 History hydralazine [Apresoline] 25 mg PO DAILY 06/13/20 06/13/20 History torsemide 20 mg tablet 20 mg PO BID tab 07/03/20 09/05/20 History epoetin arina [Procrit] 40,000 unit SUBCUT 3XW 07/23/20 07/23/20 History apixaban [Eliquis] 2.5 mg PO BID 09/05/20 09/05/20 History Allergies Allergy/AdvReac Type Severity Reaction Status Date / Time No Known Allergies Allergy Verified 08/21/20 11:28 Exam Vital signs: Vital Signs Temp 97.0 F 09/05/20 11:42 Pulse 54 09/05/20 11:42 Resp 14 09/05/20 11:42 BP 183/72 H 09/05/20 11:42 Pulse Ox 96 09/05/20 11:42 Intake & Output 09/04/20 09/05/20 09/05/20 18:59 06:59 18:59 Other: Weight 74.9 kg [place] Weight in Grams 75001 Weight 74.9 kg Body Mass Index 29.2 - Constitutional Present: no acute distress - Routine HEENT Exam Head: Present: normal inspection Eye: Present: normal appearance ENT: Present: mucous membranes moist - Routine Neck Exam Present: full ROM - Routine Respiratory Exam Present: CTAB - Routine Cardiovascular Exam Cardiovascular: Present: RRR, S1, S2 - Routine Abdominal Exam Present: soft, nontender - Routine Extremities Exam Present: nontender - Routine Back/Spine/Pelvis Exam Back/Spine: Present: full ROM - Routine Skin Exam Present: intact - Routine Neurological Exam Present: alert - Routine Psychiatric Exam Present: normal affect Data - Labs CBC & Chem 7: 09/05/20 11:36 09/05/20 11:36 Labs: 03/08/20 12:27 Complete Blood Count Man Dif Routine Comprehensive Met. Panel Routine Ferritin Routine IRON PROFILE Routine Immunofixation Pnl, Serum Routine Lactate Dehydrogenase Routine Transglutaminase Ab IgG Routine Transglutaminase IgA Routine Vitamin B12 and Folate Routine 06/07/20 11:18 Complete Blood Count Auto Diff Routine Laboratory Last Values WBC 7.3 X10*3/uL (4.8-10.8) 06/07/20 11:18 RBC 2.96 X10*6/uL (4.60-5.80) L 06/07/20 11:18 Hgb 9.2 g/dl (14.0-18.0) L 06/07/20 11:18 Hct 29.4 % (42-52) L 06/07/20 11:18 MCV 99.3 fL (80-98) H 06/07/20 11:18 MCH 31.1 pg (27.0-33.0) 06/07/20 11:18 MCHC 31.3 g/dl (31.0-36.0) 06/07/20 11:18 RDW 16.0 % (11.0-16.0) 06/07/20 11:18 Plt Count 157 X10*3/uL (160-400) L 06/07/20 11:18 MPV 10.0 fL (9.4-12.4) 06/07/20 11:18 Immature Gran % (Auto) 0.7 % (0.0-0.4) H 06/07/20 11:18 Neut % (Auto) 68.8 % (45-73) 06/07/20 11:18 Lymph % (Auto) 13.2 % (20-40) L 06/07/20 11:18 Andrew % (Auto) 12.1 % (2-11) H 06/07/20 11:18 Eos % (Auto) 4.7 % (0-4) H 06/07/20 11:18 Baso % (Auto) 0.5 % (0-2) 06/07/20 11:18 Lymph # (Auto) 1.0 X10*3/uL (1.2-4.9) L 06/07/20 11:18 Andrew # (Auto) 0.9 X10*3/uL (0.1-1.2) 06/07/20 11:18 Eos # (Auto) 0.3 X10*3/uL (0.0-0.4) 06/07/20 11:18 Baso # (Auto) 0.0 X10*3/uL (0.0-0.2) 06/07/20 11:18 Abs Immat Gran (auto) 0.05 X10*3/uL (0.00-0.03) H 06/07/20 11:18 Absolute Neuts (auto) 5.0 X10*3/uL (2.0-8.3) 06/07/20 11:18 Absolute Nucleated RBC 0.000 X10*3/uL (0.0-0.012) 06/07/20 11:18 Nucleated RBC % (auto) 0.0 /100WBC (0.0-0.2) 06/07/20 11:18 Neutrophils % (Manual) 71 % (45-73) 03/08/20 12:27 Band Neutrophils % 0 % (3-5) L 03/08/20 12:27 Lymphocytes % (Manual) 15 % (20-40) L 03/08/20 12:27 Atypical Lymphs % (Man) 1 % (0-6) 03/08/20 12:27 Monocytes % (Manual) 7 % (2-11) 03/08/20 12:27 Eosinophils % (Manual) 6 % (0-4) H 03/08/20 12:27 Abs Neuts (Manual) 5.0 X10*3/uL (2.2-7.9) 03/08/20 12:27 Lymphocytes # (Manual) 1.1 X10*3/uL (0.6-4.8) 03/08/20 12:27 Atyp Lymphs # (Manual) 0.1 x10*3/uL 03/08/20 12:27 Monocytes # (Manual) 0.5 X10*3/uL (0.0-1.2) 03/08/20 12:27 Eosinophils # (Manual) 0.4 X10*3/UL (0.0-0.8) 03/08/20 12:27 Platelet Estimate NORMAL (NORMAL) 03/08/20 12:27 Plt Morphology Comment NORMAL 03/08/20 12:27 RBC Morphology NOTED 03/08/20 12:27 Macrocytosis 2+ 03/08/20 12:27 Ovalocytes 1+ 03/08/20 12:27 Sodium 140 mmol/L (135-145) 06/07/20 11:18 Potassium 4.0 mmol/l (3.3-5.1) 06/07/20 11:18 Chloride 106 mmol/L (96-108) 06/07/20 11:18 Carbon Dioxide 26 mmol/L (22-29) 06/07/20 11:18 Anion Gap 12 (12-20) 06/07/20 11:18 BUN 40 mg/dL (9-16) H 06/07/20 11:18 Creatinine 2.07 mg/dL (0.5-1.4) H 06/07/20 11:18 Estim Creat Clear Calc 25.1 06/07/20 11:18 Estimated GFR 31 06/07/20 11:18 Random Glucose 97 mg/dL (60-115) 06/07/20 11:18 Calcium 8.6 mg/dL (8.4-10.2) 06/07/20 11:18 Iron 46 mcg/dL (45-160) 03/08/20 12:27 TIBC 357 mcg/dL (228-428) 03/08/20 12:27 % Saturation 13 % (15-50) L 03/08/20 12:27 Unsat Iron Binding 311 ug/dL 03/08/20 12:27 Ferritin 48 ng/mL (20-250) 03/08/20 12:27 Total Bilirubin 0.6 mg/dL (0.0-1.0) 06/07/20 11:18 AST 15 U/L (5-37) 06/07/20 11:18 ALT 14 U/L (0-40) 06/07/20 11:18 Alkaline Phosphatase 87 U/L (39-117) 06/07/20 11:18 Lactate Dehydrogenase 183 U/L (118-273) 03/08/20 12:27 Total Protein 6.5 g/dL (6.5-8.0) 06/07/20 11:18 Albumin 4.2 g/dL (3.5-5.0) 06/07/20 11:18 Vitamin B12 510 pg/mL (200-900) 03/08/20 12:27 Folate > 20.0 ng/mL (> or = 4.0) 03/08/20 12:27 IgG Total 936 mg/dL (600-1540) 03/08/20 12:27 IgA Total 144 mg/dL (70-320) 03/08/20 12:27 IgM 109 mg/dL (50-300) 03/08/20 12:27 LEXII Interpretation SEE NOTE 03/08/20 12:27 Tiss Transglutamin IgG 1 U/mL 03/08/20 12:27 Tiss Transglutamin IgA 1 U/mL 03/08/20 12:27 Progress Note: A/P (1) Anemia Problem details: ANEMIA OF CHRONIC DISEASE, NONSPECIFIC, MAY BE SECONDARY TO BONE MARROW DYSFUNCTION. Status: Acute Assessment and plan: Chem profile 03/08: Lytes normal. BUN 30. SUPPORT SERVICES SPECIALIST 1.84. LFTs: 0.4/94/15/9. This is a pleasant 80 year-old gentleman with a history of normochromic normocytic Anemia dating back to at least 6 months if not longer. CBC from March 08: WBC: 7.1, HGB 9.2, HCT 28.7, PLT 184. Manual diff: Shows macro-ovalocytes. DIFFERENTIAL DIAGNOSIS: 1. IRON DEFICIENCY ANEMIA: Iron profile: 46/357/13/48. transglut IgA: Normal. 2. B12 AND FOLATE DEFICIENCY: B12: 510. FOL:>20. 3. HEMOLYTIC ANEMIA: LDH: 183. 4. ACD: Related to underlying CKD: kidney function is high. This is likely. 5. MYELO INFILTRATIVE DISORDER: MDS VERSUS M.M. TP: 6.8. ALB: 4.3. SIEP: no abnormal bands. I proceeded with further evaluation. His initial workup is as detailed above. SIEP was normal at that time. He recently had an SIEP on May [address] Bell. Results: IgG 988, IgG 8158, IgM 128. A band of IgG kappa monoclonal protein is present, a band of lambda as well. He does have underlying CKD and anemia, so myeloma is a possibility. However repeat SIEP: Within normal limits.His Serum free light chain ratio:1.63. I proceeded with a bone marrow exam, given the abnormal peripheral smear, and abnormal SIEP. This was done on 07/02 and revealed: Normocellular, mildly erythroid dominant, marrow with maturing trilineage hematopoiesis. Diagnostic morphologic and flow cytometric features of a plasma cell dyscrasia are not seen. No dysplasia or marrow infiltrative process seen. Cytogenetics: Normal. Most likely anemia is related to stage III CKD. He is currently on Procrit from Dr. Bell is office. He has been getting it every 3-4 weeks. PLAN: I did offer it to give him a unit of blood to help with his shortness of breast symptoms, however he declined. I will fax his labs data to Dr. ahn to see the Procrit can be given weekly for a while to expedite red cell formation. He will be following up with Cardiology and Nephrology as well. He has an appointment with Dr. Bell next week. I gave him his lab reports to discuss with him. He will return here in a month for a follow-up visit. Thanks, CC: Dr. Conley. Dr. Caballero. Dr. Bell. (2) Anemia Status: Acute - Time Spent With Patient Total time spent is greater than 50% in coordination of care (as documented) at patient's floor/unit and/or counseling patient: 25 - 35 minutes
[2020-09-05 12:17] LABS: Alanine Aminotransferase 7 U/L (0-40); Albumin Level 4.2 g/dL (3.5-5.0); Alkaline Phosphatase 84 U/L (39-117); Anion Gap 15 (12-20); Aspartate Amino Transferase 14 U/L (5-37); Bilirubin Total 0.6 mg/dL (0.0-1.0); Blood Urea Nitrogen 46 mg/dL (9-16); Calcium 8.9 mg/dL (8.4-10.2); Carbon Dioxide 22 mmol/L (22-29); Chloride 106 mmol/L (96-108); Creatinine Clr Calc Pharmacy 23.3; Estimated Glomerular Filt Rate 29; Glucose Random 126 mg/dL (60-115); Potassium 4.1 mmol/L (3.3-5.1); Sodium 139 mmol/L (135-145); Total Protein 6.6 g/dL (6.5-8.0)
--- NOTE | 2020-09-05 12:48 | MHC.HEMONCMA ---
Pt present to f/u on anemia. History reviewed, labs drawn and pt to return in a month.
== END | disposition home or self-care (01) ==
LOC: HO.ONC 03-08 10:19
PROVIDERS: PCP Internal Medicine; Referring Provider Internal Medicine; Visit Provider Internal Medicine Medical Oncology
DX: D64.9 Anemia, unspecified (principal); D47.2 Monoclonal gammopathy; N18.30 Chronic kidney disease, stage 3 unspecified; Z79.899 Other long term (current) drug therapy
CPT/HCPCS: 36415; 80053; 82232; 82607; 82728; 82746; 82784; 83516; 83520; 83540; 83615; 85007; 85025; 85027; 86334; 86850; 86900; 99204; 99214